=== PATIENT | female | born 1940 | race Caucasian/White ===

== ENCOUNTER → 2017-03-24 | Outpatient (CLI) | payer OTHER | END | disposition home or self-care (01) | LOC: CFH 12:42 | PROVIDERS: ATTEND Family Medicine | DX: Z13.820 Encounter for screening for osteoporosis (principal); M85.88 Other specified disorders of bone density and structure, other site; Z78.0 Asymptomatic menopausal state | CPT/HCPCS: 77080 ==

== ENCOUNTER → 2020-06-15 | Outpatient (CLI) | payer OTHER | END | disposition home or self-care (01) | LOC: COVVAC 10:46 | PROVIDERS: ATTEND Internal Medicine Cardiovascular Disease | DX: Z20.822 Contact with and (suspected) exposure to COVID-19 (principal) | CPT/HCPCS: U0003 ==

== ENCOUNTER 2020-06-19 10:09 | Day surgery (SDC) | payer OTHER ==
[~2020-06-19] VITALS: Ht 157.5 cm; Wt 59.5 kg
[2020-06-19 11:29] VITALS: BP 139/64
[2020-06-19] MEDS ORDERED: SODIUM CHLORIDE 0.9% 1,000 ML IV ONE (11:30)
[2020-06-19] MEDS ORDERED: ALLO100T30 PO (11:38)
[2020-06-19] MEDS ORDERED: LISI-170 PO (11:38)
[2020-06-19] MEDS ORDERED: LEVO50TA5 PO (11:38)
[2020-06-19] MEDS ORDERED: AMLO-150 PO (11:38)
[2020-06-19] MEDS ORDERED: METO25TA91 PO (11:38)
[2020-06-19] MEDS ORDERED: ATOR20TA37 PO (11:38)
[2020-06-19] MEDS ORDERED: PROPOFOL 10 MG/ML, 20ML ONE (12:08)
== END 2020-06-19 13:49 | disposition home or self-care (01) ==
LOC: CACL 10:09
PROVIDERS: ATTEND Internal Medicine Cardiovascular Disease
DX: I34.0 Nonrheumatic mitral (valve) insufficiency (principal); I42.9 Cardiomyopathy, unspecified; I12.9 Hypertensive chronic kidney disease with stage 1 through stage 4 chronic kidney disease, or unspecified chronic kidney disease; N18.9 Chronic kidney disease, unspecified; E03.9 Hypothyroidism, unspecified; M10.9 Gout, unspecified; Z79.899 Other long term (current) drug therapy
CPT/HCPCS: 93312; 93321; 93325; J2704

== ENCOUNTER 2020-09-30 07:53 | Day surgery (SDC) | payer OTHER ==
[~2020-09-30] VITALS: Ht 157.5 cm; Wt 60.5 kg
[~2020-09-30 07:53] MED LIST: ALLO100T30 PO; AMLO-150 PO; ATOR20TA37 PO; LEVO50TA5 PO; LISI-170 PO; METO25TA91 PO
[2020-09-30 08:39] VITALS: BP 148/90
[2020-09-30] MEDS ORDERED: MIDAZOLAM 1 MG/ML, 2ML ONE (09:01)
[2020-09-30] MEDS ORDERED: LIDOCAINE 2%, 20ML ONE (09:01)
[2020-09-30] MEDS ORDERED: NITROGLYCERIN 5 MG/ML, 10ML ONE (09:01)
[2020-09-30] MEDS ORDERED: FENTANYL PF 100 MCG/2ML ONE (09:01)
[2020-09-30 09:03] LABS: MEAN CORPUSCULAR HEMOGLOBIN 30.4 pg (27.0-34.8); MEAN CORPUSCULAR HGB CONC 33.8 g/dL (32.4-35.8); MEAN PLATELET VOLUME 10.3 fL (7.4-10.4); PLATELET COUNT 177 x10^3/uL (130-400); RED BLOOD COUNT 4.92 x10^6/uL (3.82-5.3); RED CELL DISTRIBUTION WIDTH 14.2 % (9.6-15.2)
[2020-09-30 09:08] LABS: ANION GAP 6 mmol/L (5-15); CALCIUM 9.2 mg/dL (8.5-10.1); CHLORIDE 107 mmol/L (98-107); CREATININE 1.31 mg/dL (0.55-1.02)
[2020-09-30] MEDS ORDERED: SODIUM CHLORIDE 0.9% 1,000 ML IV SCH (11:00)
== END 2020-09-30 13:37 | disposition home or self-care (01) ==
LOC: CACL 07:53 → ORIP 08:30 → UNDOADMOB 08:30
PROVIDERS: ATTEND Internal Medicine Cardiovascular Disease
DX: Z01.810 Encounter for preprocedural cardiovascular examination (principal); I08.1 Rheumatic disorders of both mitral and tricuspid valves; I42.9 Cardiomyopathy, unspecified; I49.3 Ventricular premature depolarization; I27.20 Pulmonary hypertension, unspecified; E11.22 Type 2 diabetes mellitus with diabetic chronic kidney disease; I12.9 Hypertensive chronic kidney disease with stage 1 through stage 4 chronic kidney disease, or unspecified chronic kidney disease; N18.9 Chronic kidney disease, unspecified; E78.5 Hyperlipidemia, unspecified; E03.9 Hypothyroidism, unspecified; M10.9 Gout, unspecified; E66.3 Overweight; Z68.24 Body mass index [BMI] 24.0-24.9, adult; Z79.899 Other long term (current) drug therapy; Z98.890 Other specified postprocedural states; Z82.49 Family history of ischemic heart disease and other diseases of the circulatory system; Z80.9 Family history of malignant neoplasm, unspecified
CPT/HCPCS: 36415; 80048; 85027; 93458; 99156; C1760; C1769; C1894; J2250; J3010; Q9967

== ENCOUNTER 2020-10-15 11:31 | Outpatient (CLI) | payer OTHER ==
[2020-10-24] MEDS ORDERED: WARF-36 PO ×2 (07:50)
[2020-10-24] MEDS ORDERED: FURO-93 PO (07:50)
[2020-10-24] MEDS ORDERED: ASPI81TA45 PO (07:50)
[2020-10-24] MEDS ORDERED: POTA10TA5 PO (07:50)
[2020-10-24] MEDS ORDERED: ACET-1600 PO (07:51)
[2020-10-24] MEDS ORDERED: AMIO200T42 PO (07:52)
[2020-10-25] MEDS ORDERED: WARF2.5T32 PO (06:15)
== END 2020-10-15 23:59 | disposition home or self-care (01) ==
LOC: STAR 11:31
PROVIDERS: ATTEND Thoracic Surgery (Cardiothoracic Vascular Surgery)
DX: Z20.822 Contact with and (suspected) exposure to COVID-19 (principal)
CPT/HCPCS: U0003; U0005